=== PATIENT | female | born 1950 | race Caucasian/White ===

== ENCOUNTER → 2021-03-20 12:46 | Outpatient (CLI) | payer MEDICARE, SELFPAY ==
--- NOTE | ~2021-03-20 | MM_ITS ---
EXAMINATION: MM screening zac BI w mica HISTORY: Screening TECHNIQUE: Craniocaudal and mediolateral oblique 3-D tomosynthesis images were obtained and synthetic 2-D images were generated. CAD analysis was submitted and interpreted. COMPARISON: Comparison to multiple prior studies sequentially, with oldest reviewed study dated 12/31. BREAST PARENCHYMAL COMPOSITION: There are scattered areas of fibroglandular density. FINDINGS: There is no evidence of suspicious mass, calcification, or architectural distortion to sugg est malignancy in either breast. There has been no suspicious interval change. IMPRESSION: 1. No mammographic evidence of malignancy. 2. Recommend routine screening mammography in one year. BI-RADS Category 1: Negative Reviewed, dictated and finalized at location A. E GREASER
== END ==
PROVIDERS: PCP Family Medicine; Visit Provider Family Medicine
DX: Z12.31 Encounter for screening mammogram for malignant neoplasm of breast (principal)
CPT/HCPCS: 77063; 77067

== ENCOUNTER → 2021-12-05 09:58 | Outpatient (CLI) | payer MEDICARE, SELFPAY ==
--- NOTE | ~2021-12-05 | XR_ITS ---
EXAMINATION: XR elbow LT min 3V DATE: 12/05/2021 10:17 INDICATION: Left elbow pain. TECHNIQUE: 4 views of left elbow were obtained. COMPARISON: None. FINDINGS: Bone alignment is normal. No fracture. There is mild elbow joint osteoarthritis characteriz ed by tiny osteophytes. No elbow joint effusion. IMPRESSION: 1. Mild elbow joint osteoarthritis. Reviewed, dictated and finalized at location A.
== END ==
PROVIDERS: PCP Family Medicine; Visit Provider Physician Assistant
DX: M25.522 Pain in left elbow (principal); M19.022 Primary osteoarthritis, left elbow
CPT/HCPCS: 73080

== ENCOUNTER 2023-05-16 09:19 | Emergency (ER) | payer MEDICARE, SELFPAY ==
[2023-05-16 09:34] VITALS: BP 116/65; PULSE 91; RESP 16; TEMP 36.4; O2SAT 99
--- NOTE | 2023-05-16 09:42 | ED.FEMALEGU ---
HPI - Female Genitourinary General Chief complaint: Urogenital-Female Stated complaint: UTI, cellulitis in left leg Time Seen by Provider: 05/16/23 09:33 Source: patient Mode of arrival: ambulatory Limitations: no limitations History of Present Illness HPI Narrative: 72-year-old female presents with complaint of urinary frequency, urgency for 2 days. Patient reports last night she was at band concert and started to feel pain and tingling to left lower leg. States she lifted up pants and noticed redness and warmth to left lower extremity. Reports history of similar symptoms with cellulitis in the past. Denies recent injury to left lower leg. Patient reports chills and headache last night but never had fever. Ambulatory with steady gait. Took cephalexin when she last had cellulitis and states that it worked well. All systems reviewed and negative except as noted above. Related Data Home Medications Medication Instructions Recorded Confirmed aspirin 81 mg tablet,delayed 81 mg PO DAILY 07/04/19 05/16/23 release (Adult Low Dose Aspirin) cholecalciferol (vitamin D3) 50 50 mcg PO DAILY 07/04/19 05/16/23 mcg (2,000 unit) capsule ascorbate calcium (vitamin C) 500 500 mg PO DAILY 07/30/22 05/16/23 mg tablet Allergies Allergy/AdvReac Type Severity Reaction Status Date / Time levofloxacin Allergy Unknown itchy rash Verified 05/16/23 09:24 Review of Systems Review of Systems: CONSTITUTIONAL: Denies fever, chills, or sweats. EYES: Denies visual changes, redness, or discharge. ENT: Denies rhinorrhea, congestion, sore throat, or otalgia. CARDIOVASCULAR: Denies chest pain, palpitations, or edema. RESPIRATORY: Denies cough or dyspnea. GASTROINTESTINAL: Denies abdominal pain, nausea, vomiting, or diarrhea. GENITOURINARY: Reports urgency, frequency. Denies dysuria and hematuria. SKIN: Denies rash or itching. Reports redness and warmth to left lower extremity. MUSCULOSKELETAL: Denies back pain, joint pain, or myalgia. NEUROLOGIC: Denies headache, numbness, or weakness. PSYCHIATRIC: Denies anxiety or depression. All other systems reviewed are negative, except as documented in HPI. 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 There is no relevant family history pertinent to the presenting complaint. Exam Narrative: GENERAL: This is a well-nourished, well-developed patient, in no apparent distress. HEAD: normocephalic, atraumatic. EYES: PERRL. Sclera clear/white. Vision is grossly intact. EARS: External ears normal NOSE: External nose normal NECK: Neck supple, non-tender without lymphadenopathy, masses or thyromegaly. CARDIOVASCULAR: Regular rate and rhythm without murmurs, gallops, or rubs. RESPIRATORY: Clear to auscultation. Breath sounds equal bilaterally. No wheezes, rales, or rhonchi. SKIN: warm, Dry, intact with no suspicious lesions or rash, good texture and turgor. Erythema and warmth to left lower extremity 17 cm x 15 cm. Mild swelling. Skin intact. NEURO: awake, alert, and oriented to person, place and time. There were no obvious focal neurologic abnormalities. EXTREMITIES: No joint tenderness, effusion, or edema noted. Course Course Level of Care: Express Care Visit Vital Signs Vital signs: Vital Signs Temperature 36.4 C L
[2023-05-16] MEDS: cefTRIAXone 1 GM, LIDOCAINE HCL 1% LOCAL INJ 2.1 ML IM (09:55)
== END 2023-05-16 10:03 | disposition home or self-care (01) ==
PROVIDERS: Emergency Provider Nurse Practitioner Family; PCP Family Medicine
DX: L03.116 Cellulitis of left lower limb (principal); N39.0 Urinary tract infection, site not specified; Z79.82 Long term (current) use of aspirin; Z79.899 Other long term (current) drug therapy
CPT/HCPCS: 81003; 87077; 87086; 87088; 87186; 96372; 99213; G0463; J0696

== ENCOUNTER 2023-10-01 12:56 | Outpatient (CLI) | payer MEDICARE, SELFPAY ==
--- NOTE | ~2023-10-01 | CT_ITS ---
EXAMINATION: CT abdomen pelvis w con DATE: 10/01/2023 14:05 INDICATION: Anorectal fissures. Blood in stool. TECHNIQUE: Computed tomography (CT) of the abdomen and pelvis was performed with 100 mL Omnipaque 350 intravenous contrast. Automated exposure control and iterative reconstruction technique were employe d. The dose-length product was 1352.55 mGy-cm. COMPARISON: None. FINDINGS: The visualized portions of the lung bases demonstrate mild atelectasis and mild chronic tonya g disease. No pleural effusion. The heart size is normal. No pericardial effusion. The liver and sple en are normal. The gallbladder is absent. The pancreas, adrenal glands, and kidneys are normal. There is diverticulosis of the colon without evidence of diverticulitis. There are no dilated loops of bow el. The appendix is not visualized. There are no pathologically enlarged lymph nodes. There is no alannah e intraperitoneal fluid. There is no abscess. There is severe lumbar spondylosis. IMPRESSION: 1. No etiology for the patient's symptoms. Reviewed, dictated and finalized at location A.
== END 2023-10-01 12:57 | disposition home or self-care (01) ==
PROVIDERS: PCP Family Medicine; Visit Provider Nurse Practitioner
DX: K60.2 Anal fissure, unspecified (principal); K62.5 Hemorrhage of anus and rectum; R19.4 Change in bowel habit; R19.5 Other fecal abnormalities; R63.4 Abnormal weight loss
CPT/HCPCS: 74177; Q9967

== ENCOUNTER 2023-10-12 05:51 | Day surgery (SDC) | payer MEDICARE, SELFPAY ==
[2023-09-30 10:02] VITALS: BMI 35.8
[2023-10-01 14:45] VITALS: BMI 35.2
--- NOTE | 2023-10-06 11:50 | PM.HPGS ---
History of Present Illness History of Present Illness Consent: Risks, benefits, and alternatives have been discussed and questions answered. Patient agrees to proceed with procedure. Chief complaint: Gastro-esophageal Reflux Disease w/o Esophagitis, Narrative: Rosa Holcomb is a 72 year old female with excessive belching starting approximately 1.5 years ago, describing episodes of 15-20 times in a row belching without associated abdominal pain. She tried Gas-X with some improvement. The belching typically occurred 3-4 hours after eating. she has been taking lansoprazole which has been helping. She also has had some blood and mucus in her stools, also has had change in bowel habits. 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 Obesity Social History Social History Smoking status: Never smoker Second hand tobacco smoke exposure: Yes Alcohol intake: current Substance use: never Substance use type: does not use Living arrangements: with family Occupation/Education: retired Gender identity (if verbalized by the patient): Female Sexual Orientation (if Verbalized by the Patient): Straight or Heterosexual Spiritual care concerns: No Meds Home Medications and Allergies Home Medications Medication Instructions Recorded Confirmed Type aspirin 81 mg tablet,delayed 81 mg PO DAILY 07/04/19 10/12/23 History release (Adult Low Dose Aspirin) cholecalciferol (vitamin D3) 50 50 mcg PO DAILY 07/04/19 10/01/23 History mcg (2,000 unit) capsule ascorbate calcium (vitamin C) 500 500 mg PO DAILY 07/30/22 10/01/23 History mg tablet levothyroxine 100 mcg tablet 100 mcg PO DAILY #90 tabs 12/15/22 10/12/23 Rx albuterol sulfate 90 mcg/actuation 1 puff inhalation Q4H PRN 01/26/23 10/01/23 Rx aerosol inhaler (ProAir HFA) shortness of breath or wheezing #25.5 grams atorvastatin 10 mg tablet See Rx Instructions .Route 03/16/23 10/01/23 Rx .COMPLEX #90 tabs cetirizine 5 mg-pseudoephedrine ER 1 tablet PO Q12H #180 tabs 06/26/23 10/01/23 Rx 120 mg tablet,extended release,12hr (Zyrtec-D) lisinopril 10 2 tablet PO DAILY #180 tabs 06/28/23 10/12/23 Rx mg-hydrochlorothiazide 12.5 mg tablet lansoprazole 30 mg capsule,delayed 30 mg PO DAILY #90 caps 09/04/23 10/01/23 Rx release fluticasone 250 mcg-salmeterol 50 1 inh inhalation BID #60 ea 09/07/23 10/01/23 Rx mcg/dose blistr powdr for inhalation (Wixela Inhub) fluticasone propionate 50 2 spray intranasal DAILY #54.6 mL 09/07/23 10/01/23 Rx mcg/actuation nasal spray,suspension ferrous sulfate 325 mg (65 mg 325 mg PO .Every other day 09/22/23 10/01/23 History iron) tablet,delayed release nitroglycerin 0.4 % (w/w) rectal 1 inch RECTAL BID #30 grams 09/22/23 10/01/23 Rx ointment (Rectiv) diclofenac sodium 75 mg 75 mg PO BID #180 tabs 10/05/23 Rx tablet,delayed release Allergies Allergy/AdvReac Type Severity Reaction Status Date / Time levofloxacin Allergy Unknown itchy rash Verified 10/12/23 06:31 Exam Const: General: alert Orientation/consciousness: patient oriented x3 Resp: Auscultation: clear to auscultation bilaterally Cardio: Rhythm: regular rhythm GI: GI Palp: Yes Soft to palpation and No Tenderness to palpation present (GI) Neuro: General: patient oriented x3 Assessment and Plan Assessment and plan (1) Belching: Code(s): R14.2 - Eructation Status: Acute Assessment and Plan: EGD with possible biopsy or dilatation or cautery. (2) Rectal bleeding: Code(s): K62.5 - Hemorrhage of anus and rectum Status: Acute Assessment and Plan: Colonoscopy with possible biopsy or polypec
[2023-10-12 06:44] VITALS: BMI 34.7
[2023-10-12 06:45] VITALS: BP 119/79; PULSE 73; RESP 18; TEMP 36.5; O2SAT 98
--- NOTE | 2023-10-12 06:57 | WPDANESEPPF ---
Anes - Initial Pre Proc Eval Procedure: Operation Date: 10/12/23 07:30 Proposed Procedures p Esophagogastroduodenoscopy - Mike Huerta MD s Diagnostic Colonoscopy - Mike Huerta MD Date/Time: 10/12/23 06:57 Surgeon: Mike Huerta MD Pre Op Diagnosis: Gastro-esophageal Reflux Disease w/o Esophagitis, Patient Data Age: 72 Gender: F Height: 1.63 m Weight: 91.9 kg Allergies Allergy/AdvReac Type Severity Reaction Status Date / Time levofloxacin Allergy Unknown itchy rash Verified 10/12/23 06:31 Home Medications Medication Instructions Recorded Confirmed Type aspirin 81 mg tablet,delayed 81 mg PO DAILY 07/04/19 10/12/23 History release (Adult Low Dose Aspirin) cholecalciferol (vitamin D3) 50 50 mcg PO DAILY 07/04/19 10/01/23 History mcg (2,000 unit) capsule ascorbate calcium (vitamin C) 500 500 mg PO DAILY 07/30/22 10/01/23 History mg tablet levothyroxine 100 mcg tablet 100 mcg PO DAILY #90 tabs 12/15/22 10/12/23 Rx albuterol sulfate 90 mcg/actuation 1 puff inhalation Q4H PRN 01/26/23 10/01/23 Rx aerosol inhaler (ProAir HFA) shortness of breath or wheezing #25.5 grams atorvastatin 10 mg tablet See Rx Instructions .Route 03/16/23 10/01/23 Rx .COMPLEX #90 tabs cetirizine 5 mg-pseudoephedrine ER 1 tablet PO Q12H #180 tabs 06/26/23 10/01/23 Rx 120 mg tablet,extended release,12hr (Zyrtec-D) lisinopril 10 2 tablet PO DAILY #180 tabs 06/28/23 10/12/23 Rx mg-hydrochlorothiazide 12.5 mg tablet lansoprazole 30 mg capsule,delayed 30 mg PO DAILY #90 caps 09/04/23 10/01/23 Rx release fluticasone 250 mcg-salmeterol 50 1 inh inhalation BID #60 ea 09/07/23 10/01/23 Rx mcg/dose blistr powdr for inhalation (Wixela Inhub) fluticasone propionate 50 2 spray intranasal DAILY #54.6 mL 09/07/23 10/01/23 Rx mcg/actuation nasal spray,suspension ferrous sulfate 325 mg (65 mg 325 mg PO .Every other day 09/22/23 10/01/23 History iron) tablet,delayed release nitroglycerin 0.4 % (w/w) rectal 1 inch RECTAL BID #30 grams 09/22/23 10/01/23 Rx ointment (Rectiv) diclofenac sodium 75 mg 75 mg PO BID #180 tabs 10/05/23 Rx tablet,delayed release Patient hx anesthesia problems: none Family hx anesthesia problems: none Results Review: All pre-operative results and documents have been reviewed as part of the pre-operative evaluation. 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 Obesity Social History Social History Smoking status: Never smoker Second hand tobacco smoke exposure: Yes Alcohol intake: current Substance use: never Substance use type: does not use Living arrangements: with family Occupation/Education: retired Gender identity (if verbalized by the patient): Female Sexual Orientation (if Verbalized by the Patient): Straight or Heterosexual Spiritual care concerns: No Anes - Eval Final PreProcedure Day of Procedure 10/12/23 06:57 Patient weight: obese Heart: regular rate and rhythm Lungs: clear to auscultation Airway: Mallampati scale class II Neurological: alert and oriented Last oral intake: >/= 8 hours ASA classification: III Emergent: no Anesthetic plan: proceed Anesthesia type and monitoring: general GIVS and standard monitoring Results Review: All pre-operative results and documents have been reviewed as part of the pre-operative evaluation. Informed Consent: The patient's anesthetic plan and its attendant risks and benefits were discussed with the patient/family/POA. Questions were solicited and answers provided to the satisfaction of the patient/family/POA.
[2023-10-12] MEDS: LACTATED RINGERS 1,000 ML 150 ML IV CONT (07:01)
[2023-10-12 08:04] VITALS: BP 110/66; PULSE 61; RESP 16; O2SAT 98
[2023-10-12 08:14] VITALS: BP 108/60; PULSE 59; RESP 16; O2SAT 100
[2023-10-12 08:24] VITALS: BP 105/65; PULSE 59; RESP 16; O2SAT 100
--- NOTE | 2023-10-12 08:34 | WPDANESPN ---
Anes - Prog Note Post-Op Date/Time: 10/12/23 08:34 Cardiovascular status: normal Respiratory status: normal Airway patency: baseline Mental status: baseline Post-Op hydration status: normal Vital Signs: Last Vital Signs Temp 36.5 C 10/12/23 06:45 Pulse 59 L 10/12/23 08:24 Resp 16 10/12/23 08:24 BP 105/65 10/12/23 08:24 Pulse Ox 100 10/12/23 08:24 O2 Del Method Room Air 10/12/23 08:24 Pain Score (VAS): 0/10 I/O: Intake & Output 10/11/23 10/12/23 10/12/23 23:59 07:59 15:59 Intake Total 450 Balance 450 Patient Feedback: Patient satisfied with anesthetic care.
--- NOTE | 2023-10-12 09:05 | SUR.PHASEII ---
Dr Huerta notified pt's rapid H. Pylori test was positive. Tamir Meneses RN & Isa Molina RN
== END 2023-10-12 08:35 | disposition home or self-care (01) ==
PROVIDERS: PCP Family Medicine; Visit Provider Internal Medicine Gastroenterology
PROC: 0DJ08ZZ Inspection of Upper Intestinal Tract, Via Natural or Artificial Opening Endoscopic (ICD-10-PCS; CPT 43235; principal; 2023-10-12 07:30)
PROC: 0DJD8ZZ Inspection of Lower Intestinal Tract, Via Natural or Artificial Opening Endoscopic (ICD-10-PCS; CPT 45378; 2023-10-12 07:30)
DX: K21.9 Gastro-esophageal reflux disease without esophagitis (principal); K92.1 Melena; K51.50 Left sided colitis without complications; K57.30 Diverticulosis of large intestine without perforation or abscess without bleeding; K64.8 Other hemorrhoids; K31.5 Obstruction of duodenum; K25.9 Gastric ulcer, unspecified as acute or chronic, without hemorrhage or perforation; K44.9 Diaphragmatic hernia without obstruction or gangrene
CPT/HCPCS: 45380; 43239

== ENCOUNTER 2023-10-12 07:42 | Outpatient (NON) | payer MEDICARE, SELFPAY | END 2023-10-12 07:43 | disposition home or self-care (01) | PROVIDERS: PCP Family Medicine; Visit Provider Internal Medicine Gastroenterology | DX: K29.80 Duodenitis without bleeding (principal); K51.20 Ulcerative (chronic) proctitis without complications; K51.90 Ulcerative colitis, unspecified, without complications; K21.9 Gastro-esophageal reflux disease without esophagitis | CPT/HCPCS: 88305 ==

== ENCOUNTER 2024-03-29 00:04 | Day surgery (SDC) | payer MEDICARE, SELFPAY ==
[2024-03-15 15:01] VITALS: BMI 34.4
[2024-03-29 08:19] VITALS: BP 130/74; PULSE 70; RESP 16; TEMP 36.2; O2SAT 96; BMI 34.5
[2024-03-29] MEDS: LACTATED RINGERS 1,000 ML 150 ML IV CONT (08:35)
--- NOTE | 2024-03-29 09:08 | PM.IMHP ---
H&P: [facility] History of Present Illness Date/Time: 03/29/24 09:08 Chief Complaint: History of duodenal and gastric ulcers. Narrative: The patient has longstanding rheumatoid arthritis and has been taking diclofenac for several years. In November 2023 she was diagnosed with gastric and duodenal ulcers. There was scaring and some stenosis in the duodenal bulb. She was treated with double dose PPI and is here for repeat EGD to document healing of the ulcers. In addition she has been diagnosed with left-sided ulcerative colitis and is currently being treated with mesalamine. She is currently asymptomatic. 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 Obesity Social History Social History Smoking status: Never smoker Second hand tobacco smoke exposure: Yes Alcohol intake: never Substance use: current Substance use type: does not use Living arrangements: with family Occupation/Education: retired Gender identity (if verbalized by the patient): Female Sexual Orientation (if Verbalized by the Patient): Straight or Heterosexual Spiritual care concerns: No Meds Home Medications and Allergies Home Medications ?Medication ?Instructions ?Recorded ?Confirmed ?Type aspirin 81 mg tablet,delayed 81 mg PO DAILY 07/04/19 03/29/24 History release (Adult Low Dose Aspirin) cholecalciferol (vitamin D3) 50 50 mcg PO DAILY 07/04/19 03/29/24 History mcg (2,000 unit) capsule ascorbate calcium (vitamin C) 500 500 mg PO DAILY 07/30/22 03/29/24 History mg tablet cetirizine 5 mg-pseudoephedrine ER 1 tablet PO Q12H #180 tabs 06/26/23 03/29/24 Rx 120 mg tablet,extended release,12hr (Zyrtec-D) fluticasone propionate 50 2 spray intranasal DAILY #54.6 mL 09/07/23 03/29/24 Rx mcg/actuation nasal spray,suspension ferrous sulfate 325 mg (65 mg 325 mg PO .Every other day 09/22/23 03/29/24 History iron) tablet,delayed release acetaminophen 500 mg tablet 500 mg PO BID 11/05/23 03/29/24 History (Tylenol Extra Strength) levothyroxine 100 mcg tablet 100 mcg PO DAILY #90 tabs 12/02/23 03/29/24 Rx omeprazole 40 mg capsule,delayed 40 mg PO .q12 90 days #180 caps 01/20/24 03/29/24 Rx release mesalamine 1.2 gram tablet,delayed See Rx Instructions .Route 02/11/24 03/29/24 Rx release .COMPLEX #360 tabs fluticasone 250 mcg-salmeterol 50 1 inh inhalation BID #60 ea 02/15/24 03/29/24 Rx mcg/dose blistr powdr for inhalation (Wixela Inhub) albuterol sulfate 90 mcg/actuation 1 puff inhalation Q4H PRN 02/22/24 03/15/24 Rx aerosol inhaler shortness of breath or wheezing #25.5 grams lisinopril 10 2 tablet PO DAILY #14 tabs 02/26/24 03/29/24 Rx mg-hydrochlorothiazide 12.5 mg tablet atorvastatin 10 mg tablet See Rx Instructions .Route 03/01/24 03/29/24 Rx .COMPLEX #90 tabs biotin 10,000 mcg chewable tablet 10,000 mcg PO DAILY 03/15/24 03/29/24 History magnesium 250 mg tablet 250 mg PO DAILY 03/15/24 03/29/24 History Allergies Allergy/AdvReac Type Severity Reaction Status Date / Time levofloxacin Allergy Unknown itchy rash Verified 03/29/24 08:17 Vital Signs Vital Signs - 24 hr 03/29/24 08:19 Temperature 97.2 F L Pulse Rate 70 Respiratory Rate 16 Blood Pressure 130/74 Pulse Oximetry 96 Oxygen Delivery Room Air Exam Const: General: cooperative and healthy appearing Resp: Effort & Inspection: normal respiratory effort and able to speak in complete sentences Auscultation: clear to auscultation bilaterally Cardio: Rate: regular rate Rhythm: regular rhythm GI: Inspection: normal to inspection GI Palp: No No hepatosplenomegaly present Auscultation: normal bowel sounds Rectal Exam: deferred Skin: General skin exam: normal color Psych: Appearance: grossly normal Mental Status: mental status grossly normal Assessment and Plan Assessment and plan (1) Gastric ulcer: Code(s): K25.9 - Gastric ulcer, unspecified as acute or chronic, without hemorrhage or perforation Status: Acute Assessment and Plan: The patient is deemed a good candidate for the procedure. Will check biopsies for H pylori. Consent signed. Will proceed. (2) Duodenal ulcer disease: Code(s): K26.9 - Duodenal ulcer, unspecified as acute or chronic, without hemorrhage or perforation Status: Acute
--- NOTE | 2024-03-29 09:44 | P.PNAN_ITS ---
Anes - Initial Pre Proc Eval Procedure: Operation Date: 03/29/24 09:30 Proposed Procedures p Esophagogastroduodenoscopy - Pan Whyte MD Date/Time: 03/29/24 09:44 Surgeon: Pan Whyte MD Pre Op Diagnosis: gastric ulcer, duodenal ulcer Patient Data Age: 73 Gender: F Height: 1.63 m Weight: 91.4 kg Last Vital Signs Temp 36.2 C L 03/29/24 08:19 Pulse 70 03/29/24 08:19 Resp 16 03/29/24 08:19 BP 130/74 03/29/24 08:19 Pulse Ox 96 03/29/24 08:19 O2 Del Method Room Air 03/29/24 08:19 Allergies Allergy/AdvReac Type Severity Reaction Status Date / Time levofloxacin Allergy Unknown itchy rash Verified 03/29/24 08:17 Home Medications ?Medication ?Instructions ?Recorded ?Confirmed ?Type aspirin 81 mg tablet,delayed 81 mg PO DAILY 07/04/19 03/29/24 History release (Adult Low Dose Aspirin) cholecalciferol (vitamin D3) 50 50 mcg PO DAILY 07/04/19 03/29/24 History mcg (2,000 unit) capsule ascorbate calcium (vitamin C) 500 500 mg PO DAILY 07/30/22 03/29/24 History mg tablet cetirizine 5 mg-pseudoephedrine ER 1 tablet PO Q12H #180 tabs 06/26/23 03/29/24 Rx 120 mg tablet,extended release,12hr (Zyrtec-D) fluticasone propionate 50 2 spray intranasal DAILY #54.6 mL 09/07/23 03/29/24 Rx mcg/actuation nasal spray,suspension ferrous sulfate 325 mg (65 mg 325 mg PO .Every other day 09/22/23 03/29/24 History iron) tablet,delayed release acetaminophen 500 mg tablet 500 mg PO BID 11/05/23 03/29/24 History (Tylenol Extra Strength) levothyroxine 100 mcg tablet 100 mcg PO DAILY #90 tabs 12/02/23 03/29/24 Rx omeprazole 40 mg capsule,delayed 40 mg PO .q12 90 days #180 caps 01/20/24 03/29/24 Rx release mesalamine 1.2 gram tablet,delayed See Rx Instructions .Route 02/11/24 03/29/24 Rx release .COMPLEX #360 tabs fluticasone 250 mcg-salmeterol 50 1 inh inhalation BID #60 ea 02/15/24 03/29/24 Rx mcg/dose blistr powdr for inhalation (Wixela Inhub) albuterol sulfate 90 mcg/actuation 1 puff inhalation Q4H PRN 02/22/24 03/15/24 Rx aerosol inhaler shortness of breath or wheezing #25.5 grams lisinopril 10 2 tablet PO DAILY #14 tabs 02/26/24 03/29/24 Rx mg-hydrochlorothiazide 12.5 mg tablet atorvastatin 10 mg tablet See Rx Instructions .Route 03/01/24 03/29/24 Rx .COMPLEX #90 tabs biotin 10,000 mcg chewable tablet 10,000 mcg PO DAILY 03/15/24 03/29/24 History magnesium 250 mg tablet 250 mg PO DAILY 03/15/24 03/29/24 History Patient hx anesthesia problems: none Family hx anesthesia problems: none Results Review: All pre-operative results and documents have been reviewed as part of the pre- operative evaluation. 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 Hypothyroidism Social History Social History Smoking status: Never smoker Second hand tobacco smoke exposure: Yes Alcohol intake: never Substance use: current Substance use type: does not use Living arrangements: with family Occupation/Education: retired Gender identity (if verbalized by the patient): Female Sexual Orientation (if Verbalized by the Patient): Straight or Heterosexual Spiritual care concerns: No Anes - Eval Final PreProcedure Day of Procedure 03/29/24 09:44 Patient weight: obese Heart: regular rate and rhythm Lungs: clear to auscultation Airway: Mallampati scale class II Neurological: alert and oriented Last oral intake: >/= 8 hours ASA classification: III Emergent: no Anesthetic plan: proceed Anesthesia type and monitoring: general GIVS and standard monitoring Results Review: All pre-operative results and documents have been reviewed as part of the pre- operative evaluation. Informed Consent: The patient's anesthetic plan and its attendant risks and benefits were discussed with the patient/family/POA. Questions were solicited and answers provided to the satisfaction of the patient/family/POA.
[2024-03-29 10:04] VITALS: BP 117/67; PULSE 67; RESP 16; O2SAT 99
[2024-03-29 10:14] VITALS: BP 111/73; PULSE 60; RESP 20; O2SAT 100
[2024-03-29 10:24] VITALS: BP 134/66; PULSE 60; RESP 18; O2SAT 100
[2024-03-29 11:00] LABS: HPYLORIRESULT Negative (Negative)
== END 2024-03-29 10:33 | disposition home or self-care (01) ==
PROVIDERS: PCP Family Medicine; Referring Provider Internal Medicine Gastroenterology; Visit Provider Internal Medicine Gastroenterology
PROC: 0DJ08ZZ Inspection of Upper Intestinal Tract, Via Natural or Artificial Opening Endoscopic (ICD-10-PCS; CPT 43239; principal; 2024-03-29 09:30)
DX: Z09 Encounter for follow-up examination after completed treatment for conditions other than malignant neoplasm (principal); K29.30 Chronic superficial gastritis without bleeding; K44.9 Diaphragmatic hernia without obstruction or gangrene; Z87.11 Personal history of peptic ulcer disease; E66.9 Obesity, unspecified; Z68.34 Body mass index [BMI] 34.0-34.9, adult
CPT/HCPCS: 43239; 87081; 88305; J2003; J2704; J7120

== ENCOUNTER 2024-10-11 02:05 | Day surgery (SDC) | payer MEDICARE, SELFPAY ==
[2024-09-26 12:20] VITALS: BMI 35.9
--- OUTSIDE RECORDS SUMMARY | 2024-10-11 02:10 | XMS_ITS | Continuity of Care Document ---
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 Name Role Phone James PT,MPT,ATC, Sidney Unavailable Unavai lable Procedures Procedure Date Therapeutic Activities Neuromuscular Re-Ed Therapeutic Exercise Therapeutic Activities Neuromuscular Re-Ed Therapeutic Exercise Therapeutic Exercise Neuromuscular Re-Ed Therapeutic Activities Therapeutic Exercise Neuromuscular Re-Ed Therapeutic Activities Therapeutic Activities Neuromuscular Re-Ed Therapeutic Exercise Manual Therapy Manual Therapy Neuromuscular Re-Ed Therapeutic Activities PT Evaluation Low Complexity Advance Directives Directive Yes / No Effective Date File Name No Information Encounters Encounter Description Practice Location Reason(s) For Visit Diagnoses Date Provider Providers Copied on Encounter [facility], [address] [address], [place], [place], [id number], [place] tel:[phone] [place] No Information 2 James Sorenson , [place], [place]. Referring Provider: Serafin Denton [address] [address] [address], [place], [address]. tel:[phone] [facility] [address], [place], [place], [id number], [place] tel:[phone] [place] No Information [address] [place], [place], . Referring Provider: Serafin Denton [address] [place] [address] [address], [place], [place], [facility]. tel:[phone] [address], [place], [place], [id number], [phone] [place] No Information [address] [place], [place], . Referring Provider: Serafin Denton [address] [place] [address] [address], [place], [place], [facility]. tel:[phone], [id number], tel:[phone] [place] No Information [address] [place], . Referring Provider: Serafin Denton [address] [place] [address] [address], [place], [place], [facility]. tel:[phone], [place], [place], [id number], tel:[phone] [place] No Information [address] [place], . Referring Provider: Serafin Denton [address] [place] [address] [address], [place], [place], [facility]. tel:[phone], [id number], [phone] [place] No Information 1 Mod[place]in Damaso. . Referring Provider: Serafin Denton [address] [place] [address] [address], [place], [place], [facility]. tel:[phone] Family History Family Member Type Diagnosis Age At Onset No Information Payers Payer name Insurance type Covered libertarian ID Authoriza tijusto(s) [employer] Medicare Replacement CI [id number] Social History Type Description Quantity Date Captured Comments Sex Female Smoking Status No Information Chief Complaint And Reason For Visit No Information Reason For Referral Reason For Referral No Information History Of Present Illness Encounter Date Complaint History Of Prese nt Illness No Information Functional Status Date Functional Assessmen t No Information Instructions Date Instruction Additional Infor mation Giving encouragement to exercise Related to Overweight Giving encouragement to exercise Related to Overweight Assessments Type Assessment Date No Information Patient Care Teams Name Effective Dates (start - stop) Status Members No Information
--- NOTE | 2024-10-11 06:55 | WPDANESEPPF ---
Anes - Initial Pre Proc Eval Procedure: Operation Date: 10/11/24 10:30 Proposed Procedures p Colonoscopy - Pan Whyte MD Date/Time: 10/11/24 06:55 Surgeon: Pan Whyte MD Pre Op Diagnosis: Left sided colitis without complications Patient Data Age: 73 Gender: F Height: 1.63 m Weight: 94.8 kg Allergies Allergy/AdvReac Type Severity Reaction Status Date / Time levofloxacin Allergy Unknown itchy rash Verified 10/11/24 09:02 Home Medications ?Medication ?Instructions ?Recorded ?Confirmed ?Type aspirin 81 mg tablet,delayed 81 mg PO DAILY 07/04/19 10/11/24 History release (Adult Low Dose Aspirin) cholecalciferol (vitamin D3) 50 50 mcg PO DAILY 07/04/19 10/11/24 History mcg (2,000 unit) capsule ascorbate calcium (vitamin C) 500 500 mg PO DAILY 07/30/22 10/11/24 History mg tablet ferrous sulfate 325 mg (65 mg 325 mg PO .Every other day 09/22/23 10/11/24 History iron) tablet,delayed release acetaminophen 500 mg tablet 500 mg PO TID 11/05/23 10/11/24 History (Tylenol Extra Strength) levothyroxine 100 mcg tablet 100 mcg PO DAILY #90 tabs 12/02/23 10/11/24 Rx omeprazole 40 mg capsule,delayed 40 mg PO .q12 90 days #180 caps 01/20/24 10/11/24 Rx release albuterol sulfate 90 mcg/actuation 1 puff inhalation Q4H PRN 02/22/24 09/26/24 Rx aerosol inhaler shortness of breath or wheezing #25.5 grams atorvastatin 10 mg tablet See Rx Instructions .Route 03/01/24 10/11/24 Rx .COMPLEX #90 tabs biotin 10,000 mcg chewable tablet 10,000 mcg PO DAILY 03/15/24 10/11/24 History magnesium 250 mg tablet 250 mg PO DAILY 03/15/24 10/11/24 History fluticasone 250 mcg-salmeterol 50 1 inh inhalation BID #180 ea 04/21/24 10/11/24 Rx mcg/dose blistr powdr for inhalation (Wixela Inhub) cetirizine 5 mg-pseudoephedrine ER 1 tablet PO Q12H #180 tabs 05/12/24 10/11/24 Rx 120 mg tablet,extended release,12hr (Zyrtec-D) mesalamine 1.2 gram tablet,delayed See Rx Instructions .Route 07/20/24 10/11/24 Rx release .COMPLEX #360 tabs lisinopril 10 2 tablet PO DAILY #180 tabs 08/19/24 10/11/24 Rx mg-hydrochlorothiazide 12.5 mg tablet fluticasone propionate 50 2 spray intranasal DAILY #54.6 mL 09/30/24 10/11/24 Rx mcg/actuation nasal spray,suspension Patient hx anesthesia problems: none Family hx anesthesia problems: none Results Review: All pre-operative results and documents have been reviewed as part of the pre-operative evaluation. 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 Hypothyroidism Social History Social History Social History: Smoking status: Never smoker Second hand tobacco smoke exposure: Yes Alcohol intake: never Substance use: current Substance use type: does not use Do You Feel Safe in your Home?: Yes Lack of Transportation: No Lack of Food: Never True Current Housing: I Have Housing Concerned About Future Housing: No Difficulty Paying Gas/Electric Bills: No Difficulty Paying for Meds: No Currently Unemployed: YES Education: Don't Know Difficulty w/ Childcare or Family Care: No Living arrangements: with family Additional living arrangements comments: with sp Occupation/Education: retired Gender identity (if verbalized by the patient): Female Sexual Orientation (if Verbalized by the Patient): Straight or Heterosexual Spiritual care concerns: No Anes - Eval Final PreProcedure Day of Procedure 10/11/24 06:55 Patient weight: obese Heart: regular rate and rhythm Lungs: clear to auscultation Airway: Mallampati scale class II Neurological: alert and oriented Last oral intake: >/= 8 hours ASA classification: III Emergent: no Anesthetic plan: proceed Anesthesia type and monitoring: general GIVS and standard monitoring Results Review: All pre-operative results and documents have been reviewed as part of the pre-operative evaluation. Informed Consent: The patient's anesthetic plan and its attendant risks and benefits were discussed with the patient/family/POA. Questions were solicited and answers provided to the satisfaction of the patient/family/POA.
[2024-10-11 08:55] VITALS: BP 145/81; PULSE 76; RESP 12; TEMP 36.3; O2SAT 98; BMI 35.7
[2024-10-11] MEDS: LACTATED RINGERS 1,000 ML 150 ML IV CONT (09:13)
--- NOTE | 2024-10-11 10:00 | PM.IMHP ---
H&P: HPI History of Present Illness Date/Time: 10/11/24 10:00 Chief Complaint: History of ulcerative colitis Narrative: the patient has a diagnosis of left-sided ulcerative colitis her been taking a supplement 4.1 today incomplete symptom. she is here for follow-up colonoscopy. 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 Hypothyroidism Social History Social History Social History: Smoking status: Never smoker Second hand tobacco smoke exposure: Yes Alcohol intake: never Substance use: current Substance use type: does not use Do You Feel Safe in your Home?: Yes Lack of Transportation: No Lack of Food: Never True Current Housing: I Have Housing Concerned About Future Housing: No Difficulty Paying Gas/Electric Bills: No Difficulty Paying for Meds: No Currently Unemployed: YES Education: Don't Know Difficulty w/ Childcare or Family Care: No Living arrangements: with family Additional living arrangements comments: with sp Occupation/Education: retired Gender identity (if verbalized by the patient): Female Sexual Orientation (if Verbalized by the Patient): Straight or Heterosexual Spiritual care concerns: No Meds Home Medications and Allergies Home Medications ?Medication ?Instructions ?Recorded ?Confirmed ?Type aspirin 81 mg tablet,delayed 81 mg PO DAILY 07/04/19 10/11/24 History release (Adult Low Dose Aspirin) cholecalciferol (vitamin D3) 50 50 mcg PO DAILY 07/04/19 10/11/24 History mcg (2,000 unit) capsule ascorbate calcium (vitamin C) 500 500 mg PO DAILY 07/30/22 10/11/24 History mg tablet ferrous sulfate 325 mg (65 mg 325 mg PO .Every other day 09/22/23 10/11/24 History iron) tablet,delayed release acetaminophen 500 mg tablet 500 mg PO TID 11/05/23 10/11/24 History (Tylenol Extra Strength) levothyroxine 100 mcg tablet 100 mcg PO DAILY #90 tabs 12/02/23 10/11/24 Rx omeprazole 40 mg capsule,delayed 40 mg PO .q12 90 days #180 caps 01/20/24 10/11/24 Rx release albuterol sulfate 90 mcg/actuation 1 puff inhalation Q4H PRN 02/22/24 09/26/24 Rx aerosol inhaler shortness of breath or wheezing #25.5 grams atorvastatin 10 mg tablet See Rx Instructions .Route 03/01/24 10/11/24 Rx .COMPLEX #90 tabs biotin 10,000 mcg chewable tablet 10,000 mcg PO DAILY 03/15/24 10/11/24 History magnesium 250 mg tablet 250 mg PO DAILY 03/15/24 10/11/24 History fluticasone 250 mcg-salmeterol 50 1 inh inhalation BID #180 ea 04/21/24 10/11/24 Rx mcg/dose blistr powdr for inhalation (Nomi Inhub) cetirizine 5 mg-pseudoephedrine ER 1 tablet PO Q12H #180 tabs 05/12/24 10/11/24 Rx 120 mg tablet,extended release,12hr (Zyrtec-D) mesalamine 1.2 gram tablet,delayed See Rx Instructions .Route 07/20/24 10/11/24 Rx release .COMPLEX #360 tabs lisinopril 10 2 tablet PO DAILY #180 tabs 08/19/24 10/11/24 Rx mg-hydrochlorothiazide 12.5 mg tablet fluticasone propionate 50 2 spray intranasal DAILY #54.6 mL 09/30/24 10/11/24 Rx mcg/actuation nasal spray,suspension Allergies Allergy/AdvReac Type Severity Reaction Status Date / Time levofloxacin Allergy Unknown itchy rash Verified 10/11/24 09:02 Vital Signs Vital Signs - 24 hr 10/11/24 08:55 Temperature 97.4 F L Pulse Rate 76 Respiratory Rate 12 Blood Pressure 145/81 H Pulse Oximetry 98 Oxygen Delivery Room Air Exam Const: General: cooperative and healthy appearing Resp: Effort & Inspection: normal respiratory effort and able to speak in complete sentences Auscultation: clear to auscultation bilaterally Cardio: Rate: regular rate Rhythm: regular rhythm GI: Inspection: normal to inspection GI Palp: No No hepatosplenomegaly present Auscultation: normal bowel sounds Rectal Exam: deferred Skin: General skin exam: normal color Psych: Appearance: grossly normal Mental Status: mental status grossly normal Assessment and Plan Assessment and plan (1) Left sided ulcerative (chronic) colitis: Code(s): K51.50 - Left sided colitis without complications Status: Acute Assessment and Plan: The patient is deemed a good candidate for the procedure. Consent signed. Will proceed.
[2024-10-11] MEDS: SIMETHICONE ORAL SUSPENSION 20 MG/0.3 ML 30 ML BOTTLE 0.6 ML IRRIGATION (10:18)
[2024-10-11 10:28] VITALS: BP 105/60; PULSE 86; RESP 19; O2SAT 97
--- NOTE | 2024-10-11 10:28 | S_PTH ---
PATIENT: Rosa Holcomb LOC: [facility] #:[id number] AGE/SX: 73/F ROOM: RE10/11/[address]: Pan Whyte MD : 1950 BED: DIS: 10/11/2024 SPEC #: [id number] RECD: 10/11/24 10:45 STATUS: COURTNEY REQ #: [id number] TARIK: 10/11/24 10:[address]: Pan Whyte DEPT: [facility] Surgical RECD BY: Yazmin Holcomb ENTERED: 10/11/24 10:46 SP TYPE: Surgical OTHR DR: Serafin Denton MD Tissues: A - Colon Biopsy Procedures: Hematoxylin and Eosin Stain Gross and Microscopic Level 4
[2024-10-11 10:38] VITALS: BP 109/67; PULSE 78; RESP 19; O2SAT 97
[2024-10-11 10:48] VITALS: BP 118/69; PULSE 67; RESP 18; O2SAT 98
== END 2024-10-11 10:58 | disposition home or self-care (01) ==
PROVIDERS: PCP Family Medicine; Referring Provider Nurse Practitioner; Visit Provider Internal Medicine Gastroenterology
PROC: 0DJD8ZZ Inspection of Lower Intestinal Tract, Via Natural or Artificial Opening Endoscopic (ICD-10-PCS; CPT 45378; principal; 2024-10-11 10:30)
DX: Z09 Encounter for follow-up examination after completed treatment for conditions other than malignant neoplasm (principal); K57.30 Diverticulosis of large intestine without perforation or abscess without bleeding; E78.5 Hyperlipidemia, unspecified; J45.909 Unspecified asthma, uncomplicated; I10 Essential (primary) hypertension; E03.9 Hypothyroidism, unspecified; E66.9 Obesity, unspecified; Z68.35 Body mass index [BMI] 35.0-35.9, adult; Z79.82 Long term (current) use of aspirin; Z79.51 Long term (current) use of inhaled steroids; Z87.19 Personal history of other diseases of the digestive system
CPT/HCPCS: 45380; 88305; J2704; J7120

== ENCOUNTER 2024-10-26 13:59 | Outpatient (CLI) | payer MEDICARE, SELFPAY ==
--- NOTE | ~2024-10-26 | DEXA_ITS ---
Bone Density Report Name: QAMAR MARTINEZ Age: 73 Sex: Female Ethnicity: White Date of : 1950 Indication: postmenopausal; screening for osteoporosis; height loss; inflammatory bowel disease; asthma or emphysema; Referring Provider: KAYLIN PEREZ Study: Bone densitometry was performed. Exam Date: October 26, 2024 Accession number: [id number] Bone Density: Region BMD T-score Z-score Classification AP Spine(L1-L4) 1.316 2.4 4.7 Normal Femoral Neck (Left) 0.822 -0.2 1.7 Normal Total Hip (Left) 1.033 0.7 2.4 Normal Femoral Neck (Right) 0.806 -0.4 1.6 Normal Total Hip (Right) 1.035 0.8 2.4 Normal Total Hip Mean 1.034 0.8 2.4 Normal World Health Organization criteria for BMD impression classify patients as: Normal (T-score at or above -1.0), Osteopenia (T-score between -1.0 and -2.5), or Osteoporosis (T-score at or below -2.5). 10-year Fracture Risk: FRAX not reported because: All T-scores for Spine Total, Hip Total, Femoral Neck at or above -1.0 Previous Exams: Region Exam Age BMD T-score BMD Change BMD Change Date g/cm2 vs Baseline vs Previous Total Hip(Left) 10/26/2024 73 1.033 0.7 -0.012 (-1.2%) -0.012 (-1.2%) 10/30/2017 66 1.045 0.8 Total Hip(Right) 10/26/2024 73 1.035 0.8 0.006 (0.6%) 0.006 (0.6%) 10/30/2017 66 1.030 0.7 *Denotes significance at 95% confidence level, LSC for Total Hip = 0.027 g/cm2 Clinical Information Provided by Patient: Has used the following medications: Vitamin D Has the following medical conditions: Asthma or Emphysema, Inflammatory bowel diseases Patient maximum height was 66.0 Menopause Age: 51 No regular weight bearing exercise Drinks caffeinated beverages Onset of menses at age 14 Number of children 2 Impression: The patient has normal bone mass. No significant bone loss was observed. Discussion: BONE DENSITY IS ABOVE THE MINIMUM DESIRABLE LEVEL AT ALL SKELETAL SITES TESTED. This patient?s bone mineral density is above the minimum desirable level (T-score -1.0 or better) at all sites measured. The patient should follow a healthful lifestyle (good nutrition with adequate calcium and vitamin D, and appropriate weight-bearing exercise). Follow-Up: Consider repeating this study in 5 years or sooner if there is some new clinical indication. Reported by: HANNAH on 10/26/2024 2:39:00 PM. Reviewed, dictated and finalized at location A.
== END 2024-10-26 14:00 | disposition home or self-care (01) ==
LOC: ANHFOHIMG 14:01
PROVIDERS: PCP Family Medicine; Visit Provider Physician Assistant
DX: Z13.820 Encounter for screening for osteoporosis (principal); Z78.0 Asymptomatic menopausal state
CPT/HCPCS: 77080

== ENCOUNTER 2024-12-08 12:50 | Outpatient (CLI) | payer MEDICARE, SELFPAY ==
--- NOTE | ~2024-12-08 | MM_ITS ---
EXAMINATION: MM screening zac BI w mica HISTORY: Screening TECHNIQUE: Craniocaudal and mediolateral oblique 3-D tomosynthesis images were obtained and synthetic 2-D images were generated. CAD analysis was submitted and interpreted. COMPARISON: Comparison to multiple prior studies sequentially, with oldest reviewed study dated , 10/17/2011 BREAST PARENCHYMAL COMPOSITION: There are scattered areas of fibroglandular density. FINDINGS: There is no evidence of suspicious mass, calcification, or architectural distortion to suggest malignancy in either breast. IMPRESSION: 1. No mammographic evidence of malignancy. 2. Recommend routine screening mammography in one year. BI-RADS Category 1: Negative Reviewed, dictated and finalized at location B.
== END 2024-12-08 12:51 | disposition home or self-care (01) ==
LOC: MICIMG 12:51
PROVIDERS: PCP Physician Assistant; Visit Provider Physician Assistant
DX: Z12.31 Encounter for screening mammogram for malignant neoplasm of breast (principal)
CPT/HCPCS: 77063; 77067

== ENCOUNTER 2024-12-28 12:13 | Outpatient (CLI) | payer MEDICARE, SELFPAY ==
[2024-12-28 15:18] LABS: Influenza A QL RT-PCR Negative (Negative); Influenza B QL RT-PCR Negative (Negative); RSV RNA, RT-PCR Negative (Negative); SARS-CoV-2 RNA PCR Negative (Negative)
== END 2024-12-28 12:14 | disposition home or self-care (01) ==
PROVIDERS: PCP Family Medicine; Visit Provider Student in an Organized Health Care Education/Training Program
DX: Z20.822 Contact with and (suspected) exposure to COVID-19 (principal); R50.9 Fever, unspecified
CPT/HCPCS: 87637